=== PATIENT | female | born 1990 | race Caucasian/White ===

== ENCOUNTER 2018-08-02 17:54 | Emergency (ER) | payer MEDICARE ==
[~2018-08-02] VITALS: Ht 170.2 cm; Wt 122.5 kg
[2018-08-02 18:05] VITALS: Ht 170.2 cm; Wt 122.5 kg
[2018-08-02 18:56] LABS: BASOPHILS 0.2 % (0-2); EOSINOPHILS 3.2 % (0-7); HEMOGLOBIN 13.7 g/dL (12-16); IMMATURE GRANULOCYTES 0.2 % (0-5); MCH 31.2 pg (26.0-34.0); MCHC 34.3 g/dL (31.0-37.0); MCV 91.1 fL (80.0-100.0); MEAN PLATELET VOLUME 10.9 fL (7.4-10.4); NEUTROPHILS 60.4 % (40-80); PLATELET COUNT 297 10x3/uL (130-400); RBC 4.39 10x6/uL (4.00-5.40); RDW 12.7 % (11.5-14.5); WBC 9.6 10x3/uL (4.8-10.8)
[2018-08-02 19:22] LABS: ALBUMIN 3.3 g/dL (3.4-5.0); ANION GAP 9.7 mmol/L (8-16); BILIRUBIN - TOTAL 0.14 mg/dL (0.2-1.3); CALCIUM 9.6 mg/dL (8.5-10.1); CARBON DIOXIDE 26.9 mmol/L (21.0-32.0); POTASSIUM - SERUM 3.6 mmol/L (3.5-5.1); PROTEIN - SERUM 7.8 g/dL (6.4-8.2)
[2018-08-02] MEDS ORDERED: PREVACID30 MG PO (21:10)
[2018-08-02] MEDS ORDERED: HYDROCODON-ACE1 EAC2 PO (21:10)
[2018-08-02 22:40] VITALS: BP 152/98
[2018-08-02 23:24] LABS: HCG SERUM NEGATIVE (NEGATIVE)
== END 2018-08-02 22:40 | disposition other institution (70) ==
LOC: D.ER 17:54
PROVIDERS: Emergency Medicine; Family Medicine
DX: K80.50 Calculus of bile duct without cholangitis or cholecystitis without obstruction (principal)